=== PATIENT | male | born 1975 | race Caucasian/White ===

== ENCOUNTER 2020-06-08 11:58 | Outpatient (CLI) | payer MEDICAID ==
--- NOTE | 2020-06-08 16:42 | XRAY Report ---
PROCEDURE: Chest 2 View X-Ray INDICATIONS: Sob TECHNIQUE: 2 view(s) of the chest. COMPARISON: None. FINDINGS: Surgical changes and devices: None. Lungs and pleura: No pleural effusions or pneumothorax. Lungs are clear. Mediastinum: Mediastinal contours are normal. Heart size is normal. Bones and chest wall: No suspicious bony abnormalities. Soft tissues appear unremarkable. IMPRESSION: No acute cardiopulmonary abnormality. Reviewed by: Darrin Sandhu MD on 06/08/2020 4:41 PM [facility] Approved by: Darrin Sandhu MD on 06/08/2020 4:41 PM [facility] Station ID: [id number]
== END 2020-06-08 23:59 | disposition home or self-care (01) ==
LOC: DI.N 11:58
PROVIDERS: ATTEND Family Medicine
DX: R06.02 Shortness of breath (principal)

== ENCOUNTER 2020-06-19 09:10 | Outpatient (CLI) | payer MEDICAID | END 2020-06-19 09:11 | disposition home or self-care (01) | LOC: RT 09:10 | PROVIDERS: ATTEND Family Medicine | DX: R06.02 Shortness of breath (principal) | CPT/HCPCS: 94010 ==

== ENCOUNTER 2020-12-30 21:20 | Emergency (ER) | payer MEDICAID ==
[2020-12-30] MEDS ORDERED: LIDOCAINE 1%-EPI 1:100000 20 ML MDV SUBQ STA (21:23)
[2020-12-30] MEDS ORDERED: BACITRACIN ZINC OINT 1 PACKET TOP STA (21:23)
[2020-12-30] MEDS ORDERED: TETANUS/DIPHTHERIA/PERTUSSIS 0.5 ML SYRINGE IM ONE (21:26)
[2020-12-30 21:27] VITALS: BP 153/105
--- NOTE | 2020-12-30 21:27 | ED Physician Documentation ---
History of Present Illness - Stated complaint Stated Complaint: LEFT LEG LAC - Chief complaint Chief Complaint: Laceration - History obtained from History obtained from: Patient - Additonal information Additional information: 45-year-old man presents with left anterior leg laceration after a piece of wood hit him. Also possibly had a nail in it. Last tetanus was in childhood.Ambulatory without difficulty. No bony tenderness. No other complaints. Review of Systems Skin: reports: Laceration (s) Musculoskeletal: reports: Extremity pain PD PAST MEDICAL HISTORY - Present Medications Home Medications: Ambulatory Orders Medication Instructions Recorded Confirmed No Known Home Medications 12/30/20 12/30/20 - Allergies Allergies/Adverse Reactions: Allergies Allergy/AdvReac Type Severity Reaction Status Date / Time Sulfa (Sulfonamide Allergy Anxiety Verified 12/30/20 21:24 Antibiotics) PD ED PE NORMAL - Vitals Vital signs reviewed: Yes - General General: Alert and oriented X 3, No acute distress, Well developed/nourished - HEENT HEENT: Atraumatic, PERRL, EOMI - Derm Derm: Normal color, Warm and dry, Other (Vertical laceration to anterior left leg.) - Extremities Extremities: Other (2+ bilateral DP pulses. Normal sensation, capillary refill) Results - Vitals Vitals: Vital Signs - 24 hr 12/30/20 21:22 Temperature 36.6 C Heart Rate 74 Respiratory 16 Rate Blood Pressure 153/105 H O2 Saturation 96 Oxygen O2 Source Room air Procedures - Laceration (location) Lower extremity left Anterior Length in cm: 5 Wound type: Linear, Into subcut fat, Clean Neurovascular status: Sensory intact, Motor intact Anesthesia: Lidocaine 1% with epi Wound preparation: Irrigated copiously NS, Wound explored, To the base, Other (no foreign body) Skin layer closure: Nylon, Interrupted, Size #-0 - enter number (4), Sutures - enter # (5) Other: Patient tolerated well, No complications, Neurovascular intact, Dressing applied, Tetanus booster given PD MEDICAL DECISION MAKING - ED course ED course: 45-year-old man presents with uncomplicated laceration of left leg, repaired without difficulty. Tetanus updated. Return precautions given. Patient will follow-up for suture removal in 14 days. Departure - Departure Disposition: 01 Home, Self Care Clinical Impression: Laceration of leg Condition: Good Instructions: ED Laceration All Comments: You were seen in the emergency department for laceration of your left leg. Mutated your tetanus shot so you are good for 10 years. Please return to the emergency department if you experience any signs of infection or have any new or worsening symptoms or other concerns. You need to have the stitches removed in 14 days. You can go to [facility] walk-in clinic. Discharge Date/Time: 12/30/20 22:05
== END 2020-12-30 22:05 | disposition home or self-care (01) ==
LOC: ED 21:20
DX: S81.812A Laceration without foreign body, left lower leg, initial encounter (principal); W26.8XXA Contact with other sharp object(s), not elsewhere classified, initial encounter
CPT/HCPCS: 12002; 90471; 90715; 99282; 99283; A9270

== ENCOUNTER 2021-10-17 11:18 | Outpatient (CLI) | payer MEDICAID ==
--- NOTE | 2021-10-17 11:54 | XRAY Report ---
PROCEDURE: Foot 3 View LT INDICATIONS: PAIN IN LEFT TOE, FIRST DIGIT TECHNIQUE: 3 views of the foot were acquired. COMPARISON: None FINDINGS: Bones: 3 views of the left foot demonstrate a nondisplaced fracture of the proximal phalanx. No suspi cious bony lesions. Soft tissues: No tibiotalar joint effusion. Achilles tendon appears normal. IMPRESSION: Nondisplaced fracture of the great toe proximal phalanx. Reviewed by: Ever Holm on 10/17/2021 11:53 AM PDT Approved by: Ever Holm on 10/17/2021 11:53 AM PDT Station ID: [id number]
== END 2021-10-17 23:59 | disposition home or self-care (01) ==
LOC: DI.N 11:18
PROVIDERS: ATTEND Registered Nurse
DX: S92.415A Nondisplaced fracture of proximal phalanx of left great toe, initial encounter for closed fracture (principal)

== ENCOUNTER 2021-10-25 08:47 | Outpatient (CLI) | payer MEDICAID ==
[2021-10-25 11:31] LABS: BASOPHILS # (AUTO) 0.1 10^3/uL (0.0-0.1); BASOPHILS % (AUTO) 0.8 %; EOSINOPHILS # (AUTO) 0.2 10^3/uL (0.0-0.7); EOSINOPHILS % (AUTO) 2.8 %; HCT - HEMATOCRIT 44.2 % (42.0-52.0); HGB - HEMOGLOBIN 15.2 g/dL (14.0-18.0); LYMPHOCYTES # (AUTO) 1.4 10^3/uL (1.5-3.5); LYMPHOCYTES % (AUTO) 23.6 %; MEAN CORPUSCULAR HEMOGLOBIN 32.1 pg (27.0-31.0); MEAN CORPUSCULAR HGB CONC 34.4 g/dL (32.0-36.0); MEAN CORPUSCULAR VOLUME 93.4 fL (80.0-94.0); MEAN PLATELET VOLUME 10.1 fL (7.4-11.4); MONOCYTES # (AUTO) 0.7 10^3/uL (0.0-1.0); MONOCYTES % (AUTO) 11.5 %; NEUTROPHILS # (AUTO) 3.7 10^3/uL (1.5-6.6); PLT - PLATELET COUNT 212 10^3/uL (130-450); RED BLOOD COUNT 4.73 10^6/uL (4.70-6.10); RED CELL DISTRIBUTION WIDTH 12.6 % (12.0-15.0); WHITE BLOOD COUNT 6.1 x10^3/uL (4.8-10.8)
[2021-10-25 11:57] LABS: ALBUMIN 4.2 g/dL (3.2-5.5); ALBUMIN/GLOBULIN RATIO 1.4 (1.0-2.2); ALKALINE PHOSPHATASE 71 IU/L (42-121); ALT ALANINE AMINOTRANSFERASE 36 IU/L (10-60); AST ASPARTATE AMINOTRANSFERASE 28 IU/L (10-42); BILIRUBIN,TOTAL 0.6 mg/dL (0.2-1.0); BUN - BLOOD UREA NITROGEN 19 mg/dL (6-20); CALCIUM 9.7 mg/dL (8.5-10.3); CARBON DIOXIDE - CO2 29 mmol/L (21-32); CHLORIDE 103 mmol/L (101-111); CHOL/HDL RATIO 4.7 (<5.0); CHOLESTEROL 266 mg/dL; CREATININE 0.9 mg/dL (0.6-1.2); GFR - MDRD 91 (>89); GLUCOSE 92 mg/dL (70-100); HDL CHOLESTEROL 57 mg/dL; LDL CHOLESTEROL,CALCULATED 192 mg/dL; LDL/HDL RATIO 3.4 (<3.6); POTASSIUM 4.3 mmol/L (3.5-5.0); SODIUM 139 mmol/L (135-145); TOTAL PROTEIN 7.2 g/dL (6.7-8.2); TRIGLYCERIDES 86 mg/dL; VLDL CHOLESTEROL 17 mg/dL
[2021-10-25 12:08] LABS: THYROID STIMULATING HORMONE 1.41 uIU/mL (0.34-5.60)
== END 2021-10-25 08:48 | disposition home or self-care (01) ==
LOC: LAB.N 08:47
PROVIDERS: ATTEND Physician Assistant
DX: R53.82 Chronic fatigue, unspecified (principal); Z13.220 Encounter for screening for lipoid disorders
CPT/HCPCS: 36415; 80050; 80061; 83721

== ENCOUNTER 2021-11-15 08:00 | Outpatient (CLI) | payer MEDICAID ==
--- NOTE | 2021-11-15 15:42 | XRAY Report ---
PROCEDURE: Foot 3 View LT INDICATIONS: GREAT TOE FX TECHNIQUE: 3 views of the foot were acquired. COMPARISON: Left foot radiographs 10/17/2021 FINDINGS: Bones: Comminuted fracture of the first proximal phalanx is redemonstrated with unchanged alignment. Portions of the lucent fracture line is still visualized. No new osseous abnormality is seen. No susp icious bony lesions. Soft tissues: No suspicious soft tissue calcifications. IMPRESSION: First proximal phalangeal fracture redemonstrated with unchanged alignment. Reviewed by: Darrin Sandhu MD on 11/15/2021 3:41 PM PDT Approved by: Darrin Sandhu MD on 11/15/2021 3:41 PM PDT Station ID: [id number]
== END 2021-11-15 23:59 | disposition home or self-care (01) ==
LOC: DI.WOS 08:00
PROVIDERS: ATTEND Physician Assistant
DX: S92.412A Displaced fracture of proximal phalanx of left great toe, initial encounter for closed fracture (principal)

== ENCOUNTER 2022-02-26 15:07 | Outpatient (CLI) | payer MEDICAID ==
--- NOTE | 2022-02-26 15:54 | SLEEP CARE CONSULTATION ---
Information from patient questionnaire entered by Roya Ho. I have reviewed and concur with the information entered by Roya Ho. This document represents the service I personally performed and the decisions made by me, Vida Son ARNP. History of Present Illness Service Date and Time: 02/26/2022 1507 Reason for Visit: New patient Accompanied by: Nghi[place]ookie Chief Complaint: reports: Unrefreshed sleep, Fatigue Date of Onset: most of life Usual bedtime: 730-830pm Time it takes to fall asleep: sometimes fast sometimes not; couple minutes most of time Snores at night: Yes (very light snore when very tired; most of the time no snoring) Observed to quit breathing while asleep: No Sleeps alone due to snoring: No Number of times waking at night: 2-4 Reasons for waking at night: reports: Bathroom, Other (unknown reasons ). de nies: Choking, Snoring, Gasping for air Toss, Turn, or Twitch while sleeping: Yes (sometimes) Recalls having dreams: Yes Usually gets out of bed at: 430-5pm Feels refreshed in the morning: No Morning headache: No Sleepy or fatigued during the day: Yes Ever fallen asleep while driving: Yes (drowsy driving but no accidents) Takes day naps: No (not typically) Dreams during day naps: Yes Prior sleep studies: No Additional HPI information: I had the pleasure of seeing ANA POLANCO today regarding the possibility of him having a sleep disorder. His current complaint is fatigue. He states he is tired all the time. He wakes up tired and groggy. He was checked by his PCP who looked at his thyroid and blood work which was all normal. He was sent here for evaluation. He states that since he was a young adult he has always been tired during the day. At his first job, he would lay down and rest for 10-15 minutes during his breaks. He can fall asleep quickly most of the time but will then wake up several times a night. - Parasomnia Symptoms Ever been unable to move upon waking from sleep: Yes (occasionally) Walks in sleep: No Talks in sleep: No Ever acted out dreams in sleep: Yes (while dreaming; occasionally) Ever felt weak in the knees when startled or emotional: No Bothered by creepy, crawly, restless sensations in legs: No Problems with memory or concentration: Yes (both; forgetfulness; concentrating sometimes is hard to focus) Subjective Initial [place] Sleepiness Scale score: 16 (02/22/2022) Past Medical History Past Medical History: reports: Arthritis Social History The patient's occupation is a [employer]. Patient is Single and lives in [place]. Have you smoked in the past 12 months: No (once in a while) Cigarettes per day (20/pack): 1 (socially as a youth) Years of smokin Quit date: 1999 Smoking Pack Years: 0 Alcohol use: No Caffeine use: Yes Caffeine amount and frequency: 20oz daily Family History Family history of sleep disordered breathing: No Family Hx Sleep Apnea: Mother: Snoring, Father: Snoring Allergies and Home Medications Known drug allergies: Yes (sulfates) Drug allergies reviewed: Yes (sulfa) Home medication list reviewed: Yes (no daily medications) Review of Systems Weight gain over past 5 years: 50 Weight loss over past 5 years: 50 Cardiovascular: denies: high blood pressure Gastrointestinal: denies: heartburn Urinary: reports: frequency Neurological: reports: head trauma (4-5 yrs old, hit back of head, needed stitches) Ear/Nose/Throat: reports: wisdom teeth removed. denies: tonsillectomy Musculoskeletal: reports: joint pain Immunologic: denies: allergies to food or environment Physical Exam Vital signs obtained and entered by: ROYA Collins MA Blood Pressure: 132/84 (left arm ) Cuff size: regular Heart Rate: 65 O2 Saturation: 98 Height: 5 ft 11.75 in Weight: 231 lb 9.6 oz Body Mass Index: 31.6 BMI Classification: Obese Neck circumference: 16.75 Nostrils: patent to airflow Mouth and throat: normal Soft palate: long Hard palate: normal Uvula: long Uvula visualization: 100% Mallampati Class I Tongue: enlarged in size with teeth fritz on lateral edges Tonsils: 1+ Neck: normal w/o lymphadenopathy or thyromegaly Heart: regular rate and rhythm Lungs: clear bilaterally Impression and Plan 1. Suspected Obstructive Sleep Apnea-Hypopnea Syndrome, as suggested by a history of irregular snoring, frequent awakening during the night, unrefreshed sleep, cognitive impairment, and excessive daytime sleepiness. Narrow oropharynx and obesity are common predisposing factors for obstructive sleep apnea-hypopnea syndrome. I recommend proceeding to polysomnography to confirm the diagnosis and to assess severity. If the patient has significant sleep disordered breathing, a manual CPAP titration study will also be performed to find the optimal treatment pressure. I informed the patient of what the sleep studies involve and after some discussion, obtained agreement to proceed. The pathophysiology of obstructive sleep apnea-hypopnea syndrome was discussed with the patient and health risks of cardiovascular and cerebrovascular disease if not treated. 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 Patient agreed to plan. * Schedule polysomnography * Avoid long distance driving or driving when feeling sleepy. * Avoid alcohol, sedative and muscle relaxant around bedtime. * Attempt to lose weight. * Review instructions provided by trained office staff on how to prepare for the sleep study. * Return for follow-up after sleep study completed. Counseling Topics: Weight loss health impact Visit Type: In Office Other Participants: Spouse/Significant Other Time Spent with Patient (minutes): 31 Provider Statement: I spent 100% of the Face to Face Visit with the patient with greater than 50% spent counseling the patient and coordination of care.
[2022-02-26 16:05] VITALS: BP 132/84
== END 2022-02-26 15:08 | disposition home or self-care (01) ==
LOC: SC 15:07
PROVIDERS: ATTEND Nurse Practitioner Family
DX: G47.10 Hypersomnia, unspecified (principal); R41.89 Other symptoms and signs involving cognitive functions and awareness; G47.8 Other sleep disorders; R06.83 Snoring; E66.9 Obesity, unspecified; Z68.31 Body mass index [BMI] 31.0-31.9, adult
CPT/HCPCS: 99203; 99212

== ENCOUNTER 2022-04-08 06:56 | Outpatient (CLI) | payer MEDICAID | END 2022-04-08 06:57 | disposition home or self-care (01) | LOC: SC 06:56 | PROVIDERS: ATTEND Nurse Practitioner Family | DX: R09.02 Hypoxemia (principal) | CPT/HCPCS: 95806 ==

== ENCOUNTER 2022-05-07 11:14 | Outpatient (CLI) | payer MEDICAID ==
[2022-05-09 04:08] LABS: HSV 2 IGG TYPE SPEC <0.91 index (0.00-0.90)
== END 2022-05-07 11:15 | disposition home or self-care (01) ==
LOC: LAB.N 11:14
PROVIDERS: ATTEND Physician Assistant
DX: Z11.3 Encounter for screening for infections with a predominantly sexual mode of transmission (principal)
CPT/HCPCS: 86695; 86696

== ENCOUNTER 2022-05-08 07:41 | Outpatient (CLI) | payer MEDICAID ==
--- NOTE | 2022-05-08 13:28 | XRAY Report ---
PROCEDURE: Cervical Spine Comp w/Flex/Ext INDICATIONS: PARESTHESIA OF HAND,LOW BACK PAIN TECHNIQUE: 5 views of the cervical spine were acquired. COMPARISON: None. FINDINGS: Bones: No fractures or dislocations to the T1 level. No suspicious bony lesions. Mild straightenin g of normal cervical lordosis. This may be related to positioning and/or concurrent muscle spasms. Th ere is normal range of motion between flexion and extension, with preserved normal bony alignment. Mu ltilevel spondylosis of the cervical spine. Findings are most pronounced at C5-6 and C6-7. Soft tissues: Prevertebral soft tissues are normal in thickness. IMPRESSION: Cervical spine without acute fracture. Multilevel cervical spondylosis most pronounced a t C5-6 and C6-7. Mild straightening of normal cervical lordosis. This may be related to positioning and/or concurrent muscle spasms. Reviewed by: Kar Wilhelm MD on 05/08/2022 1:27 PM PST Approved by: Kar Wilhelm MD on 05/08/2022 1:27 PM PST Station ID: [id number]
--- NOTE | 2022-05-08 13:30 | XRAY Report ---
PROCEDURE: Lumbar Spine 2 View INDICATIONS: PARESTHESIA OF HAND,LOW BACK PAIN TECHNIQUE: 2 views of the lumbar spine were acquired. COMPARISON: None. FINDINGS: Bones: 5 [id number] vertebrae are present. There is mild levoscoliosis of the lumbar spine cent ered at L3. No acute compression fracture. Moderate multilevel spondylosis of the lumbar spine most p ronounced at the thoracolumbar junction as well as L1-2 and L2-3. Multilevel facet arthropathy also v isualized. No suspicious bony lesions. Soft tissues: Overlying bowel gas pattern is normal. No suspicious soft tissue calcifications. IMPRESSION: Lumbar spine without acute osseous abnormalities. Mild levoscoliosis centered at L3. Moderate multilevel lumbar spondylosis most pronounced at the thoracolumbar junction, L1-2, and L2-3. Reviewed by: Kar Wilhelm MD on 05/08/2022 1:29 PM PST Approved by: Kar Wilhelm MD on 05/08/2022 1:29 PM PST Station ID: [id number]
== END 2022-05-08 07:42 | disposition home or self-care (01) ==
LOC: DI 07:41
PROVIDERS: ATTEND Physician Assistant
DX: M47.812 Spondylosis without myelopathy or radiculopathy, cervical region (principal); M47.816 Spondylosis without myelopathy or radiculopathy, lumbar region; M47.815 Spondylosis without myelopathy or radiculopathy, thoracolumbar region

== ENCOUNTER 2022-05-21 08:16 | Outpatient (CLI) | payer MEDICAID ==
--- NOTE | 2022-05-21 08:44 | SLEEP CARE CONSULTATION ---
Information from patient questionnaire entered by Roya Ho. I have reviewed and concur with the information entered by Roya Ho. This document represents the service I personally performed and the decisions made by , Vida Son ARNP. History of Present Illness Service Date and Time: 05/21/2022 0816 Accompanied by: Spouse Initial [place] Sleepiness Scale score: 16 (02/22/2022) Current [place] Sleepiness Scale score: 9 (05/21/22) Additional HPI information: ANA POLANCO returns for follow up and results of the recently performed home sleep study. The patient was informed of the following findings: No significant sleep disordered breathing with an average AHI of 1.2 and truman oxygen saturation of 88%. Patient only slept supine during the study. I explained the pathophysiology behind obstructive sleep apnea. Patient does not have sleep apnea and was advised how weight gain could increase the risk of developing sleep apnea in the future. I strongly encouraged the patient to lose weight. Patient counseled not drink alcohol less than 4 hours before bedtime as it can increase snoring and apnea. Patient was cautioned about risks of drowsy driving until sleepiness symptoms resolve. Sleep Study - Results Type of Sleep Study: Home sleep study (COMPLETED 04/08/2022) Prior sleep studies: No Polysomnography/Home Sleep Study results: Physician Impression: The quality of the study is good. The length of the study is adequate (> 240 minutes). Please also see the tabulated and graphic data. 1. No significant sleep-disordered breathing, with an AHI of 1.5/hr and truman SaO2 of 88%. During the study, the patient had 8 apneas (8 obstructive, 0 central, 0 mixed) and 2 hypopneas. The longest episode lasted 38.5 seconds. The patient only slept supine during this study (supine AHI was 1.5 and non-supine, 0.00). 2. Hypoxemia (ICD-10 R09.02), minimal, with the lowest oxygen saturation of 88 % and 1.2 minutes with SaO2 under 90%. Baseline oxygen saturation was normal (Average oxygen saturation was 94%). Allergies and Home Medications Drug allergies reviewed: Yes (Sulfa) Home medication list reviewed: Yes (no changes) Review of Systems Review of systems same as previous: Yes (no changes) Physical Exam Vital signs obtained and entered by: ROYA Collins MA Blood Pressure: 130/86 (LEFT ARM) Cuff size: regular Heart Rate: 68 O2 Saturation: 97 Height: 5 ft 11.75 in Weight: 240 lb 9.6 oz Body Mass Index: 32.8 BMI Classification: Obese Impression and Plan 1. Fatigue, unspecified. Patient had come in with complaints of unrefreshed sleep and fatigue. His HST showed no significant sleep disordered breathing with an average AHI of 1.5. Patient only slept on his back or supine during the study. There was no episodes of snoring noted during the study. We cannot rule out sleep disordered breathing when sleeping non-supine. I advised patient that we could have him repeat sleep study in our sleep lab for further evaluation. He does not want to do another sleep study at this time, so I advised patient to return to primary care provider for further evaluation of his fatigue. * Attempt to lose weight * Avoid alcohol consumption near bedtime * The patient is cautioned about driving until sleepiness is completely resolv ed. * Return as needed for follow up. Counseling Topics: Weight loss health impact Visit Type: In Office Time Spent with Patient (minutes): 11 Provider Statement: I spent 100% of the Face to Face Visit with the patient with greater than 50% spent counseling the patient and coordination of care.
[2022-05-21 08:45] VITALS: BP 130/86
== END 2022-05-21 08:17 | disposition home or self-care (01) ==
LOC: SC 08:16
PROVIDERS: ATTEND Nurse Practitioner Family
DX: R53.83 Other fatigue (principal); E66.9 Obesity, unspecified; Z68.32 Body mass index [BMI] 32.0-32.9, adult
CPT/HCPCS: 99212

== ENCOUNTER 2022-06-19 07:57 | Outpatient (CLI) | payer MEDICAID ==
--- NOTE | 2022-06-19 12:31 | MRI Report ---
PROCEDURE: MRI lumbar spine without contrast INDICATIONS: LUMBAR SPONDYLOSIS TECHNIQUE: Noncontrast sagittal T1 spin echo and T2 fast echo, sagittal STIR, axial T1 and T2 fast spin echo thr ough the lumbar spine. In cases with scoliosis, additional coronal T2 fast spin echo may be performe d. COMPARISON: None. FINDINGS: Image quality: Excellent. Alignment and Curvature: There is normal bony alignment. Bone Marrow: Edematous Modic type I degenerative endplate changes noted at T11-T12, L1-2 Spinal Cord: Conus medullaris terminates at the L1 level. Visualized cord demonstrates normal signa l and size. Paraspinous Soft Tissues: No paravertebral masses. T12-L1: Disc space narrowing with circumferential disc bulge results in mild central and no foramina l stenosis L1-L2: Disc space narrowing and circumferential disc bulge results in mild central stenosis. No fo raminal stenosis L2-L3: Disc space narrowing with asymmetric left disc bulge noted. Moderate left foraminal stenosi s appear no central stenosis. Mild right foraminal stenosis L3-L4: Disc spaces relatively maintained. Disc bulge with hypertrophic facet joints results in mild to moderate central stenosis. No foraminal stenosis L4-L5: Disc space narrowing with broad-based disc bulge and hypertrophic facet joints results in mo derate central stenosis. Moderate bilateral foraminal stenosis greater on the prior L5-S1: Disc space narrowing with asymmetric left disc bulge effaces the left lateral recess and dis places the descending nerve root. Mild central stenosis. Hypertrophic facet joints contribute to mode rate left and no right foraminal stenosis IMPRESSION: Multilevel degenerative disc disease and arthropathy results in varying degrees of central and forami nal stenosis including effacement of the left lateral recess and moderate left foraminal stenosis at L5-S1, moderate central stenosis L4-5 Reviewed by: Sidney Buchanan MD on 06/19/2022 11:29 AM [place] Approved by: Sidney Buchanan MD on 06/19/2022 11:29 AM [facility] Station ID: [id number]
== END 2022-06-19 07:58 | disposition home or self-care (01) ==
LOC: DI 07:57
PROVIDERS: ATTEND Physician Assistant
DX: M47.816 Spondylosis without myelopathy or radiculopathy, lumbar region (principal); M54.32 Sciatica, left side; M51.36 Other intervertebral disc degeneration, lumbar region; M48.061 Spinal stenosis, lumbar region without neurogenic claudication; M48.07 Spinal stenosis, lumbosacral region